=== PATIENT | male | born 1970 | race Caucasian/White ===

== ENCOUNTER → 2023-06-18 15:22 | Outpatient (REF) | payer OTHER, SELFPAY | LOC: HWRAD 15:22 | PROVIDERS: ATTENDING PHYSICIAN Physician Assistant; FAMILY PHYSICIAN Family Medicine | DX: E05.90 Thyrotoxicosis, unspecified without thyrotoxic crisis or storm (principal); E04.1 Nontoxic single thyroid nodule | CPT/HCPCS: 76536 ==

== ENCOUNTER → 2024-10-11 12:58 | Outpatient (REF) | payer OTHER, SELFPAY | LOC: HWRCS 12:58 | PROVIDERS: ATTENDING PHYSICIAN Family Medicine | DX: R01.1 Cardiac murmur, unspecified (principal) | CPT/HCPCS: 93306 ==

== ENCOUNTER 2024-11-23 09:35 | Day surgery (SDC) | payer OTHER, SELFPAY ==
[2024-11-23] VITALS (9 sets, daily range): BP systolic 93–126; BP diastolic 63–87
--- NOTE | 2024-11-23 12:33 | ITS.CL.CATH ---
Ccu Nurse - Catheterization
Cardiac Catheterization
Procedure Report:
CARDIAC CATHETERIZATION REPORT
Date of Procedure: 11/23/2024
Referring: Deshawn Veras M.D.
INDICATION: Severe mitral valve regurgitation, preop for mitral valve repair.
PROCEDURE:
1. Left heart catheterization.
2. Coronary angiography.
A total of 23 minutes of procedural/moderate sedation was utilized. An independent medical front desk specialist was present to assist with and help manage the patient's level of consciousness and physiologic status.
ACCESS:
1. 6 [place] right right artery using a modified Seldinger technique delete the.
CATHETERS:
1. 5 [place] JR4.
2. 5 [place] JL 3.5.
HEMODYNAMIC DATA
Weight (kg): 99.8
AO (s/d/x, mmHg): 103/75/88
LV (s/x mmHg): 106/14
LEFT VENTRICULOGRAPHY: Not performed.
CORONARY ANGIOGRAPHY
Dominance: Right.
Left Main: Normal size, trifurcating vessel. There is no coronary artery disease
LAD: Normal size vessel giving rise to 2 significant diagonals and fairly rapid succession. There is no coronary artery disease.
Ramus: Medium size vessel supplying a significant portion of the anterolateral wall. There is no coronary artery disease.
Circumflex: Medium to large size vessel giving rise to 1 notable obtuse marginal which supplies the inferolateral wall. There is no coronary artery disease. The terminal end of the obtuse marginal is severely tortuous.
RCA: Large size, dominant vessel with a large posterolateral arcade supplying the majority of the inferolateral wall. There is no coronary artery disease.
INTERVENTION(S)
None
Closure Device: Vascular band.
Radiation (mGy): 373.08
DAP (cm2.Gy): 28.7866
Fluoroscopy time (minutes): 1.6
CONCLUSIONS
1. Right dominant circulation with no coronary artery disease.
2. Mildly elevated filling pressures (LVEDP = 14 mmHg at 99.8 kg).
3. Severe degenerative mitral valve regurgitation on echocardiography.
RECOMMENDATIONS:
1. Expectant management after cardiac catheterization via right radial approach.
2. Limited weight bearing on the right wrist for one week.
3. Ongoing plan for surgical mitral valve repair.
Copy to: Darren Cramer M.D., Deshawn Veras M.D., Charles Jones M.D., Barbi Newman M.D.
Saeed Alonzo DO, FACC, FACP
[2024-11-23] MEDS: TYLENOL 650 MG PO (14:01)
[2024-11-23] MEDS: NSS 1000 IV (14:04)
== END 2024-11-23 17:15 | disposition home or self-care (01) ==
LOC: CATH 09:35
PROVIDERS: ATTENDING PHYSICIAN Internal Medicine Cardiovascular Disease; FAMILY PHYSICIAN Family Medicine; OTHER PHYSICIAN Student in an Organized Health Care Education/Training Program
DX: I34.0 Nonrheumatic mitral (valve) insufficiency (principal); E05.00 Thyrotoxicosis with diffuse goiter without thyrotoxic crisis or storm
CPT/HCPCS: 93312; 93320; 93325; 99152; 99153; 93458; C1894; Q9967

== ENCOUNTER → 2024-12-05 16:58 | Outpatient (REF) | payer OTHER, SELFPAY | LOC: RAD 16:58 | PROVIDERS: ATTENDING PHYSICIAN Thoracic Surgery (Cardiothoracic Vascular Surgery); FAMILY PHYSICIAN Family Medicine | DX: I34.0 Nonrheumatic mitral (valve) insufficiency (principal); Z01.810 Encounter for preprocedural cardiovascular examination | CPT/HCPCS: 71275; 74174; Q9967 ==

== ENCOUNTER 2024-12-30 05:56 | Inpatient (IN) | payer OTHER, SELFPAY ==
[2024-12-06 12:19] VITALS: BMI 32.0
[2024-12-06 12:59] LABS: Hematocrit 38.6 % (39.0-52.0); Hemoglobin 13.3 g/dL (13.0-18.0); Mean Corp Hgb Conc. 34.5 g/dL (33.0-37.0); Mean Corpuscular Volume 83.5 fL (80.0-94.0); Nucleated Red Blood Cells % 0 % (-); Platelet Count 192 10^3/uL (130-400); Red Cell Dist. Width 12.0 % (11.5-14.5)
[2024-12-06 13:31] LABS: APTT 29.5 Sec (23.4-35.0); INR 0.97; PT 13.2 Sec (11.4-14.6)
[2024-12-06 13:57] LABS: ALT (SGPT) 16 U/L (0-50); AST (SGOT) 21 U/L (17-59); Albumin 5.0 g/dl (3.5-5.0); Alkaline Phosphatase 67 U/L (38-126); Blood Urea Nitrogen 14 mg/dl (9-20); Calcium 10.5 mg/dl (8.4-10.2); Carbon Dioxide 28 mmol/L (22-30); Chloride 104 mmol/L (98-107); Estimated Creatinine Clearance > 125 ml/min; Glucose 89 mg/dl (70-99); Potassium 4.2 mmol/L (3.5-5.1); Sodium 137 mmol/L (135-145); Total Protein 7.4 g/dl (6.3-8.2); eGFR > 60.00
[2024-12-06 14:43] LABS: Glycohemoglobin (HgbA1c) 5.1 % (4.0-5.6)
[2024-12-06 15:09] LABS: Urine Character Clear (Clear)
--- NOTE | 2024-12-06 15:15 | CM ---
spoke to pt in PAT's, we discussed pre op MVR ([place]) teaching including lifting and driving restrictions. he is prev indep, lives with is cooper 2 story homewith 1 step to enter. he has the cardiac surgery book, soap and instructiosn. he is
agreeable to a f/u visit from the ct transitioanl care nurse after dc. plan is for MVR 12/30. cm role explained and all questions answered
[2024-12-30] VITALS (16 sets, daily range): BP systolic 95–136; BP diastolic 63–87; PULSE 2–81
--- NOTE | 2024-12-30 06:00 | PTCARENOTE ---
Patient admitted to CVICU. Patient confirmed 2 CHG showers. Patient admission questions asked. Patient clipped and wiped w/ CHG wipes. Med rec. performed. Medications administered prior to CVOR. Questions answered. Awaiting CVOR.
[2024-12-30] MEDS: LOPRESSOR 25 MG PO (06:14)
[2024-12-30] MEDS: PROTONIX 40 MG PO (06:14)
[2024-12-30] MEDS: MAGNESIUM OXIDE 400 MG PO (06:14)
[2024-12-30] MEDS: BACTROBAN 2% OINTMENT 1 APPLIC NASAL ×2 (06:14→20:50)
--- NOTE | 2024-12-30 06:29 | W.CVOR.SURPR ---
CVOR Surgeon Immed Pre Op
-
I have examined this patient prior to performance of the scheduled procedure.
The patient's condition is unchanged from the time of the dictated/written History and
Physical and the patient is able to undergo the scheduled procedure.
MV repair +/- LASHAE E
[2024-12-30 08:03] LABS: Urine Character Clear (Clear)
--- NOTE | 2024-12-30 08:04 | W.PN.CD ---
Today's Communication / Plan
-
Surgery today.
Anticipate routine post op recovery.
Wean vent to extubate.
Titrate pressors/inotropes for MAP > 65 mmHg, CI > 1.8 L/min/m2.
Impression / Plan
-
Impression/Plan: 54 y/o male with hyperthyroidism and severe MR admitted for elective mitral valve repair.
#Severe MR
-Chronic, progressive.
-Currently in surgery.
-Anticipate routine post operative recovery.
-Wean vent to extubate.
-Titrate pressors/inotropes to MAP > 65 mmHg, CI > 1.8 L/min/m2.
#Hyperthyroidism/Graves disease
-Chronic, stable.
-Maintain methimazole.
Subjective/Interval History:
Patient in the OR for surgery today.
DATA:
DANYA, 11/23/2024:
SUMMARY
1. Normal biventricular size and function without regional wall motion abnormalities.
2. LVEF is 55-60% by visual estimation.
3. Severe mitral regurgitation secondary to flail P2 scallop likely secondary to torn chordae.
4. Compared to TTE from October 11, 2024, no significant change.
Cardiac Catheterization, 11/23/2024:
CONCLUSIONS
1. Right dominant circulation with no coronary artery disease.
2. Mildly elevated filling pressures (LVEDP = 14 mmHg at 99.8 kg).
3. Severe degenerative mitral valve regurgitation on echocardiography.
Physical Exam
Vital Signs/Labs
Vital Signs
Temp Pulse Resp BP Pulse Ox
36.8 C 78 20 136/87 99
12/30/24 05:59 12/30/24 05:59 12/30/24 05:59 12/30/24 06:14 12/30/24 05:59
12/28/24 12/29/24 12/30/24
11:59 11:59 11:59
Actual Weight 97.6 kg
12/06/24 12:27
12/06/24 12:27
PT 13.2 Sec (11.4-14.6) 12/06/24 12:27
INR 0.97 12/06/24 12:27
APTT 29.5 Sec (23.4-35.0) 12/06/24 12:27
Physical Exam
Constitutional: No acute distress and Comfortable
EENT: Other (ET tube in place.)
Neuro/Psych: Other (Intubated/sedated.)
Data Reviewed
-
Date of Service: December 30, 2024
Medical Decision Making: Reviewed Test Results and Test Interpretation
EKG: Tracing Personally Visualized and interpreted and Report Reviewed by me
Echo: Tracing Personally Visualized and interpreted and Report Reviewed by me
X-Ray/CT/US/MRI/NUC/PET: Image Personally Visualized and interpreted and Report Reviewed by me
Medical Tests (PFT, Pathology etc): Image Personally Visualized and interpreted and Report Reviewed by me
Labs: Labs Reviewed by me
Old Records: Reviewed
[2024-12-30 08:11] LABS: Urine Red Blood Cell 0-2 /HPF (0-2)
[2024-12-30 08:16] LABS: ACT+ - POC 126 Seconds (82-134)
[2024-12-30 09:09] LABS: ACT+ - POC 589 Seconds (82-134)
[2024-12-30 09:50] LABS: ACT+ - POC 549 Seconds (82-134)
[2024-12-30 09:55] LABS: B.E. - POC 2.4 mmol/L; Glucose - POC 102 mg/dl (70-99); HCO3 - POC 29 mmol/L (21-28); Hematocrit - POC 37 % PCV (42-52); Hemodilution- POC No; Hemoglobin Calculated - POC 12.4; Ionized Calcium - POC 1.30 mmol/L (1.15-1.33); Lactate - POC < 0.30 mmol/L (0.36-0.75); O2 Saturation %Calculated-POC 99.9 % (94-98); PCO2 - POC 51 mmHg (35-48); PO2 - POC 280 mmHg (83-108); Potassium - POC 3.7 mmol/L (3.5-5.1); Sodium - POC 139 mmol/L (136-145); Specimen Type - POC Arterial; pH - POC 7.36 (7.35-7.45)
[2024-12-30 10:30] LABS: ACT+ - POC 521 Seconds (82-134)
[2024-12-30 10:50] LABS: B.E. - POC 0.6 mmol/L; Glucose - POC 176 mg/dl (70-99); HCO3 - POC 26 mmol/L (21-28); Hematocrit - POC 36 % PCV (42-52); Hemodilution- POC Yes; Hemoglobin Calculated - POC 12.2; Ionized Calcium - POC 1.12 mmol/L (1.15-1.33); Lactate - POC 1.22 mmol/L (0.36-0.75); O2 Saturation %Calculated-POC 99.8 % (94-98); PCO2 - POC 44 mmHg (35-48); PO2 - POC 222 mmHg (83-108); Potassium - POC 5.2 mmol/L (3.5-5.1); Sodium - POC 137 mmol/L (136-145); Specimen Type - POC Arterial; pH - POC 7.38 (7.35-7.45)
--- NOTE | 2024-12-30 10:52 | CM ---
pt in OR today, cm following
[2024-12-30 10:59] LABS: ACT+ - POC 120 Seconds (82-134)
--- NOTE | 2024-12-30 11:07 | W.PN.CT.SURG ---
CT Surgery Operative Note
-
CARDIAC SURGERY OPERATIVE REPORT
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
Postoperative Diagnosis: Same
Procedure(s) Performed:
1. Right mini thoracotomy with right femoral artery and vein cannulation under DANYA guidance
2. Radical mitral valve repair (triangular section of P2, free edge remodeling with closure of the cleft and P1 P2 and placement of 2 Bland-Arvin cords and a 34 mm band angioplasty)
3. Placement temporary ventricular pacing wires
4. Trans esophageal echocardiography
5. Left atrial appendage exclusion [40 mm device]
Date of Surgery: 12/30 08/05
Comorbidities:
1. 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
2. Severe mitral valve insufficiency, symptomatic
3. Asthma
4. Allergies and nasal polyp
5. Obese
Attending Surgeon: Darren Cramer MD, MS
Assistants: China Maldonado PA-C (present and necessary for retraction, suctioning, exposure, suture management, wound closure, etc. under my direction)
Anesthesiology: Melvin Moy MD and Preethi Otto CRNA
Scrub and Circulating RNs: Tish Partida, HERBERTH, Clifton Khan RN
Sheriffs: Benjamin Comer CCP
Anesthesia: GETA
EBL: per perfusion records
Products: None
CPB Time: 86 minutes
Aortic Cross Clamp Time: 69 minutes
Indication(s) for Procedures: This is a 54-year-old male with mitral valve insufficiency. He had some mild dilation of his LV and a very mildly reduced left ventricular ejection fraction. Between our office consultation and today, he actually
developed more symptoms and was feeling short of breath. He was offered surgical repair of his mitral valve as well as possible ligation of his left atrial appendage given that he has dilation of his left atrium and it is valve related
insufficiency.
Mitral Valve Description: Thickening of both the anterior posterior leaflets with a flail segment of the P2 scallop, with prolapse. There are multiple torn cords. Annulus was dilated in both the AP and lateral medial dimensions, large class
between P1 and P2.
Implants:
1. 34 mm band anoplasty, Vini physio flex, SN [id number]
2. 40 mm left atrial appendage clip, serial number [id number]
3. 2 sets of CV 4 Bland-Arvin cords, multiple 5-0 Prolene's
Specimen:
1. P2 scallop with torn cords
Findings: His left ventricular ejection fraction preop was 50% with no significant regional wall motion abnormalities. Following surgery his EF actually looks significantly better without inotropic support. There were no new regional wall motion
abnormalities his mitral valve had multiple torn cords at the P2 scallop which was also significantly prolapsed and elongated. The annulus was also dilated. I did a triangular resection of this P2 scallop in order to reduce some of the height.
This was reapproximated with multiple 5-0 Prolene's in order to promote a downward ventricular turn. I then placed a free edge remodeling stitch between P1 and P2 and obliterate the cleft. The left atrial appendage was also visualized
intraoperatively and found to be totally occlusive. I then placed 2 sets of cords from the anterior lateral and the posterior medial papillary muscle heads to the P2 free margin as I felt the coaptation margin was too anterior on inking of the
coaptation line. The annulus was secured and remodeled using a 34 mm band annuloplasty with a total of 10 nonpledgeted 2-0 Ethibond sutures with core knots. After coming off of cardiopulmonary bypass, there is no residual mitral valve
insufficiency, there is good excursion of the anterior posterior leaflets, there is no systolic anterior motion of the leaflets. The mean gradient across the valve was 2 mmHg. The left atrial appendage was clipped across the transverse sinus flush
the base. There is no residual flow in the left atrial appendage on DANYA. No blood products were required, cardiac index is well over 2 without inotropic support, and he resumed his sleetmute sinus rhythm.
Description of Procedure: The patient was brought to the operating room and placed supine in the table with their right side bumped up and right arm down. Arterial and central access was performed by anesthesiology. The patient was prepped from chin
to toes in the typical sterile fashion. Trans esophageal evaluation of cardiac function and all valvular structures was conducted. Before commencing, a time out was performed by all members of the team. All were in agreement with the procedure and
laterality and I proceeded. A small right groin incision was made to expose the common femoral artery and vein. A 5-6 cm right lateral muscle sparing thoracotomy sweeping the pec major muscle cephalad at the serratus anterior was performed over the
4th intercostal space verified by visualization of the hilum. A total of 50,000 units of heparin was given. The common femoral artery and vein were cannulated under transesophageal guidance using open Seldinger technique. The arterial line was
verified to have an appropriate bounce and pressure correlating with testing. Once the ACT was above 400, retrograde autologous priming was done and we commenced cardiopulmonary bypass. Target core temperature was 34�C.
Carbon dioxide was used to flood the field. The course of the phrenic nerve was identified to prevent injury. The pericardium was opened and two stay sutures were placed to facilitate a ``pericardial table.�� The oblique sinus was developed followed
by the inter atrial groove. An antegrade root vent was inserted and secured with a pursestring suture. The pump flow and mean arterial pressure were lowered and an aortic cross clamp was applied to the ascending aorta. A total of 1.2L initial dose
of Antegrade cardioplegia was delivered. We had rapid electro myocardial quiescence at 320 cc of cardioplegia. The ventricle was monitored for distension by echocardiogram during this time. Once the heart was fully arrested I turned the root vent
on and the aorta then flattened and facilitate exposure to the transverse sinus. Left atrial Penders was visualized here and then clipped flush the base using a 40 mm device. The left atrium was incised and enlarged. A left atrial lift retractor
was placed. The mitral valve was inspected. The mitral valve was repaired as described above. The left atriotomy was closed with 3-0 prolene in a running fashion leaving a ventricular vent in place to de-air. After filling the heart, the vent was
removed and the prolene was secured with a corknot. Unipolar ventricular pacing wire was placed on the base of the right ventricle. The patient was placed into Trendelenburg position and pump flows were lowered. The clamp was slowly removed with
the root vent turned on. De-airing maneuvers were performed. We started to rewarm with a target of 36.5�C.
As the heart recovered, the mitral valve and ventricular function were assessed under transesophageal echocardiogram. The LV vent and root vents were removed. Once weaning parameters were satisfactory, cardiopulmonary bypass flow was lowered until
we were off cardiopulmonary bypass the mitral valve was inspected again. All surgical sites were inspected for hemostasis and appeared appropriate. The root vent and the pericardium was approximated with 2-0 ethibond sutures secured with corknots.
The lines were clamped and the arterial was relocated to the venous cannula to give back volume. A test dose of protamine was delivered and patient was monitored for any adverse reactions followed by complete protamine dosing. The femoral vessels
were decannulated and repaired as indicated. One 19F Nomi drain remained in the pleural space and threaded into the pericardium. There was an excellent palpable distal pulse to the GARAGE WORKER cannulation site. Local analgesia was injected to the
thoracotomy. The incision was closed in layers in a running fashion.
All instrument, sponge, and needle counts were confirmed to be correct x 2 at the end of the operation. The patient was transferred to the cardiac intensive care unit in critical but stable condition.
I, Dr. Darren Cramer, was present, scrubbed for, and performed all critical elements of this procedure.
Darren Cramer MD, MS
Cardiothoracic Surgeon
[facility]
This dictation was created using the PAK dictation system. Please excuse any grammatical, typographical, or 'sound alike' errors
--- NOTE | 2024-12-30 11:45 | CON.INTV ---
Consultation
Consultation Request
Date/Time Consultation Requested: 12/30/2024
Date/Time Consultation Performed: 12/30/2024
Medical History
-
Chief Complaint: Mitral valve prolapse
History of Present Illness:
Patient is a 54-year-old gentleman with known history of mitral regurgitation. Patient followed up with CT surgery as outpatient and was recommended to have mitral valve repair. He was admitted to the hospital for above procedure and postop was
admitted to CVICU. Cosmetician consultation was requested for further input.
Past medical history. Asthma, allergic rhinitis, nasal polyps. Graves' disease
Past surgical history. Appendectomy, sinus surgery, hernia repair, wisdom tooth removal.
Family history. Mother had eczema. No other major medical problems reported.
Social history. Will get additional information once ore awake and alert
Allergies / Home Medications
Allergies
Allergy/AdvReac Type Severity Reaction Status Date / Time
amoxicillin (From Augmentin) Allergy GI Upset Verified 12/05/24 14:12
clavulanic acid (From Allergy GI Upset Verified 12/05/24 14:12
Augmentin)
Home Medications
�Medication �Instructions �Recorded �Confirmed �Last Taken �Type
Zyrtec 1 tab PO DAILY Allergies 11/23/24 12/30/24 12/27/24 08:00 History
aspirin 81 mg tablet 81 mg PO DAILY Blood Clot 11/23/24 12/30/24 12/19/24 08:00 History
Prevention/Tx
methimazole 15 mg tablet 15 mg PO DAILY Thyroid 11/23/24 12/30/24 12/29/24 11:30 History
pseudoephedrine-ibuprofen 30 1 cap PO PRN PRN cold 11/23/24 12/30/24 12/28/24 12:00 History
mg-200 mg capsule (Advil Cold and
Sinus)
albuterol sulfate 90 mcg/actuation 2 puff inhalation QID PRN sob 12/05/24 12/30/24 12/30/24 04:30 History
aerosol inhaler
budesonide 1 mg/2 mL suspension 1 mg inhalation DAILY PRN 12/05/24 12/30/24 12/16/24 12:00 History
for nebulization congestion
fluticasone propionate 50 1 spray intranasal DAILY PRN 12/05/24 12/30/24 12/28/24 08:00 History
mcg/actuation nasal congestion
spray,suspension
Review of Systems
-
Unable to Obtain full review of systems at this time due to: Other (Still sedated)
Vitals / Labs / Diagnostic Testing
Vital Signs
Temp Pulse Resp BP Pulse Ox
98.3 F 78 20 136/87 99
12/30/24 05:59 12/30/24 05:59 12/30/24 05:59 12/30/24 06:14 12/30/24 05:59
Diagnostic Testing:
Physical Exam
-
HEENT: Normocephalic
Cardiovascular: S1/S2
Respiratory: Clear
GI: Soft and Non Distended
Neurology: Other (Still sedated. )
Skin: Warm
General: Comfortable
Assessment
-
Patient is a 54-year-old male with history of severe mitral regurgitation s/p radical mitral valve repair with left atrial appendage exclusion POD # 0
Titrated off pressors per protocol, currently MAP of 80, CVP of 11, not needing any pressor support. Heart rate 82/min
ECHO reviewed with normal EF
PA catheter readings reviewed, , mean 23
Management of chest tubes per primary service
Patient currently extubated, still quite drowsy, Precedex infusing at 0.3, respiratory rate around 13-15, mild respiratory acidosis noted with increased pCO2
- Discontinue Precedex infusion
- BiPAP being initiated, 10 x 6, 4 L supplemental oxygen, tidal volume around 500-600 noted. Reevaluation in few minutes continues to ventilate well with 500-700 tidal volume and respiratory rate 13-15. Still drowsy.
- Check ABG in 45 minutes after being on BiPAP and continue to stay off all sedation including Precedex
CXR suggestive of bilateral lower lobe subsegmental atelectasis, BiPAP initiated. Once more awake and alert, can start incentive spirometry
Maintain supplement oxygen as needed
Known history of asthma, not currently wheezy. In view of hypercapnia, start DuoNeb scheduled 4 times daily along with budesonide nebulized twice a day
Can add nebulizers if needed
Aspiration precautions
Encouraged incentive spirometry, OOB/ambulation/early mobility
Advance diet as tolerated following extubation
GI prophylaxis: Protonix
Monitor critical I/O's
Escobedo/chest tube output
Hb/platelets postoperatively, mild drift
Trend CBC for now
Can transfuse if indicated for Hb <7, plt <50 in surgical patients
DVT prophylaxis including SCDs
Insulin protocol initiated and ongoing
Transition to SQ/off as indicated per team
Other medical diagnoses:
- Pulmonary nodule, RLL (11/2024). Newly detected on recent CT scan, 1 nodule is 3 mm and another area appears to be more of an atelectasis. Outpatient follow-up with pulmonary clinic. Will get additional information once patient is more alert
and awake
- History of asthma, mild intermittent. As needed budesonide, as needed albuterol
- Allergic rhinitis. As needed Flonase and Zyrtec
- Graves' disease. Follows up with endocrinology service. Currently on methimazole
Critical Care time [68] mins -- The patient is admitted for acute critical illness for the treatment of vital organ failure and/or prevention of further life-threatening conditions. Total care includes time spent in review of history, physical exam,
medications, hemodynamic/ventilator parameters, laboratory data, imaging and discussion with house staff, pharmacy, respiratory therapy, copy lathe operator, and nursing
Data:
[facility] 11/2024: 1. Right dominant circulation with no coronary artery disease.
2. Mildly elevated filling pressures (LVEDP = 14 mmHg at 99.8 kg).
3. Severe degenerative mitral valve regurgitation on echocardiography.
DANYA 11/2024: 1. Normal biventricular size and function without regional wall motion abnormalities.
2. LVEF is 55-60% by visual estimation.
3. Severe mitral regurgitation secondary to flail P2 scallop likely secondary to torn chordae.
4. Compared to TTE from October 11, 2024, no significant change.
CT C/A/P 11/2024: 1. No acute vascular abnormality is identified. No flow-limiting stenoses. No aneurysmal dilation of the aorta.
2. Mild cardiomegaly.
3. Very small nodules/focal opacities right lower lobe as above. Given the size, these are likely to have a benign etiology. If there are significant risk factors, consider follow-up scan in 12 months as below.
4. Additional chronic and incidental findings as detailed above.
ECHO 10/2024: Left ventricle is mildly dilated (LVIDD 6.0 cm, LVIDS 4.2 cm) with low-normal
systolic function. LVEF 50-55%.
Severely dilated left atrium.
Prolapse and partial flail of the posterior mitral valve leaflet resulting in
severe eccentric mitral regurgitation.
Mild tricuspid regurgitation. PASP 30-35 mmHg.
[2024-12-30 11:57] LABS: B.E. - POC -3.1 mmol/L; Glucose - POC 145 mg/dl (70-99); HCO3 - POC 24 mmol/L (21-28); Hematocrit - POC 30 % PCV (42-52); Hemodilution- POC Yes; Hemoglobin Calculated - POC 10.3; Ionized Calcium - POC 1.32 mmol/L (1.15-1.33); Lactate - POC 1.97 mmol/L (0.36-0.75); O2 Saturation %Calculated-POC 98.0 % (94-98); PCO2 - POC 51 mmHg (35-48); PO2 - POC 119 mmHg (83-108); Potassium - POC 4.3 mmol/L (3.5-5.1); Sodium - POC 137 mmol/L (136-145); Specimen Type - POC Arterial; pH - POC 7.28 (7.35-7.45)
[2024-12-30 12:00] LABS: Glucose - Point of Care 155 mg/dl (70-99)
[2024-12-30 12:04] LABS: B.E. -2.7 mmol/L; HCO3 24.5 mmol/L (21-28); O2 Saturation % 98.3 % (94-98); PCO2 51 mmHg (35-48); PO2 94 mmHg (83-108); Potassium 4.0 mMOL/L (3.5-5.1); Sodium 136 mMOL/L (136-145)
[2024-12-30 12:07] LABS: Hematocrit 36.9 % (39.0-52.0); Hemoglobin 12.8 g/dL (13.0-18.0); Platelet Count 145 10^3/uL (130-400)
[2024-12-30] MEDS: DILAUDID 0.5 MG IV ×4 (12:08→23:23)
[2024-12-30 12:13] LABS: INR 1.22; PT 15.7 Sec (11.4-14.6)
[2024-12-30 12:14] LABS: APTT 26.1 Sec (23.4-35.0)
[2024-12-30 12:17] LABS: Blood Urea Nitrogen 15 mg/dl (9-20); Estimated Creatinine Clearance 114 ml/min; Glucose 146 mg/dl (70-99); Magnesium 2.8 mg/dl (1.6-2.3)
--- NOTE | 2024-12-30 12:22 | PTCARENOTE ---
received pt from the CVOR into 2260, sinus rhythm on tele w HR 80's, + peripheral pulses, no edema noted. Epicardial V wire maintained. Lungs diminished, pox 95% on CPAP 01/16. hypoactive BS, NPO maintained post op. Escobedo draining yellow. CTx1 w red
drainage. Right lateral incision and puncture sites w surgical glue intact. Post op EKG, CXR and labs obtained as ordered.
DRIPS: Insulin titrated per glycemic protocol.
[2024-12-30] MEDS: ANCEF 10 IV ×2 (12:30)
[2024-12-30] MEDS: NEURONTIN PO (12:30)
[2024-12-30] MEDS: NSS 500 IV (12:31)
[2024-12-30 12:52] LABS: Glucose - Point of Care 155 mg/dl (70-99)
--- NOTE | 2024-12-30 13:12 | W.PN.UPDATE ---
Update Note
Progress Note Update
54-year-old male was electively admitted on 12/30/2024 for mitral valve repair due to myxomatous mitral degeneration with flail segment of P2 and severe MR and shortness of breath with exertion.
IV fluids: 1150
U.O.:� 500
Blood:� none
Wires:� V-wires
Drips: Levo @ 2, insulin
�
NEURO: drowsy, [place] +5/5 B/L, pupils +2mm B/L
RESP: Lungs clear B/L. R pleural (50cc on arrival) chest tubes to -20cm suction. Sanguineous drainage
CV: RRR +S1, S2, no S3, no�rub, no murmur. Dermabond to Right mini thoracotomy. RIJ w/[place] locked @ 44cm. PA 34/14; CVP 12
ABD: round, soft, no BS
EXT: no edema, +2/4 DP pulses B/L, no femoral bruit, left radial A-line intact
: Escobedo with clear yellow urine
�
A/P: POD #0 s/p radical mitral valve repair (triangular section of P2, free edge remodeling with closure of the cleft and P1 P2 and placement of 2 [place]-Arvin cords and a #34 mm band angioplasty), left atrial appendage exclusion [40 mm device]
- wean and extubate
- will need pre-discharge TTE
- will need instruction regarding antibiotic prophylaxis for dental and invasive procedures
�
# acute surgical blood loss anemia-expected
- Hb 12.8>trend CBC
�
# Asthma
- Flonase, Zyrtec
�
# Hyperthyroidism
- resume�Methimazole
[2024-12-30 13:20] LABS: B.E. 0.3 mmol/L; HCO3 26.5 mmol/L (21-28); O2 Saturation % 99.3 % (94-98); PCO2 48 mmHg (35-48); PO2 134 mmHg (83-108)
[2024-12-30] MEDS: LR 250 ML IV ×2 (13:30→14:10)
[2024-12-30] MEDS: TYLENOL PO ×2 (13:31→19:50)
[2024-12-30 13:39] LABS: B.E. - POC 1.1 mmol/L; Glucose - POC 138 mg/dl (70-99); HCO3 - POC 27 mmol/L (21-28); Hematocrit - POC 36 % PCV (42-52); Hemodilution- POC Yes; Hemoglobin Calculated - POC 12.4; Ionized Calcium - POC 1.09 mmol/L (1.15-1.33); Lactate - POC < 0.30 mmol/L (0.36-0.75); O2 Saturation %Calculated-POC 99.9 % (94-98); PCO2 - POC 50 mmHg (35-48); PO2 - POC 319 mmHg (83-108); Potassium - POC 5.2 mmol/L (3.5-5.1); Sodium - POC 138 mmol/L (136-145); Specimen Type - POC Arterial; pH - POC 7.35 (7.35-7.45)
--- NOTE | 2024-12-30 13:40 | PTCARENOTE ---
bipap removed by RT, pt placed on 6L NC, POX 96
[2024-12-30 14:02] LABS: Glucose - Point of Care 120 mg/dl (70-99)
[2024-12-30] MEDS: ROXICODONE 5 MG PO ×3 (14:02→22:20)
[2024-12-30] MEDS: LOW STRENGTH ASPIRIN 81 MG PO (14:03)
[2024-12-30] MEDS: NEURONTIN 100 MG PO ×2 (14:28→21:01)
[2024-12-30] MEDS: PACERONE 200 MG PO ×2 (14:28→21:01)
[2024-12-30 14:59] LABS: Glucose - Point of Care 100 mg/dl (70-99)
--- NOTE | 2024-12-30 15:06 | PTCARENOTE ---
VSS, pt medicated for pain, at bedside and updated on plan of care.
[2024-12-30] MEDS: DUONEB 3 ML INH ×2 (15:27→19:53)
[2024-12-30] MEDS: TORADOL 15 MG IV (15:42)
[2024-12-30 16:18] LABS: Glucose - Point of Care 127 mg/dl (70-99)
[2024-12-30 16:18] LABS: Hematocrit 35.9 % (39.0-52.0); Hemoglobin 13.0 g/dL (13.0-18.0); Platelet Count 164 10^3/uL (130-400)
--- NOTE | 2024-12-30 16:30 | PTCARENOTE ---
CHG bath completed, pt turned from side to side without large output from CTs.
[2024-12-30] MEDS: OFIRMEV 100 IV (17:04)
[2024-12-30] MEDS: ANCEF 5 IV (17:23)
--- NOTE | 2024-12-30 17:53 | PTCARENOTE ---
[place] removed without incident.
[2024-12-30 18:12] LABS: Glucose - Point of Care 119 mg/dl (70-99)
[2024-12-30] MEDS: ZOFRAN 4 MG IV (18:22)
--- NOTE | 2024-12-30 18:26 | PTCARENOTE ---
pt medicated for pain and nausea with good relief.
[2024-12-30] MEDS: PULMICORT 0.5 MG INH (19:53)
--- NOTE | 2024-12-30 20:00 | PTCARENOTE ---
Assumed care of the patient at 1900. Patient in bed, drowsy, AOx3. SR on CM, rates 80's-90's, no edema, pulses palpable, heart tones audible; V wire present connected to pacer box powered off. Lungs dim at the bases, on 2LNC, shallow respirations
due to pain, IS encouraged. Abdomen SNT, hypoactive, tolerating sips and chips. Escobedo catheter in place draining clear yellow urine. Surgical sites stable and intact. RIJ cordis, L radial art line, PIVx1; all applicable lines leveled, zeroed, and
flushed. On Levo and insulin. Levo turned off for sufficient MAP. See work list for nursing intervention details.
[2024-12-30 20:02] LABS: Glucose - Point of Care 104 mg/dl (70-99)
[2024-12-30] MEDS: SENOKOT 8.6 MG PO (20:54)
[2024-12-30 22:04] LABS: Glucose - Point of Care 128 mg/dl (70-99)
[2024-12-30] MEDS: TYLENOL 650 MG PO (23:24)
--- NOTE | 2024-12-30 23:35 | PTCARENOTE ---
Patient c/o increasing pain. PRN oxycodone given, did not do much to alleviate his discomfort, Dilaudid subsequently administered. Pt c/o headache, given Tylenol. Repositioned as needed for comfort. Sleeping intermittently between care, arouse to
voice. Assessment of needs ongoing, call chun within reach.
[2024-12-30 23:59] LABS: Glucose - Point of Care 109 mg/dl (70-99)
[2024-12-31] VITALS (18 sets, daily range): BP systolic 95–118; BP diastolic 68–84; PULSE 92; O2SAT 94–96; BMI 30.7
[2024-12-31 02:02] LABS: Glucose - Point of Care 119 mg/dl (70-99)
[2024-12-31] MEDS: ANCEF 5 IV ×2 (02:05→11:06)
[2024-12-31] MEDS: LR 250 ML IV ×2 (02:06→02:56)
[2024-12-31] MEDS: ROXICODONE 5 MG PO ×4 (02:55→21:45)
--- NOTE | 2024-12-31 03:12 | W.PN.CT ---
Today's Communication / Plan
-
-pod #1
-no significant issues overnight
-low UO- improved with 500 LR
-drips: insulin
-CT output: med 105/190 in 12/24 hrs
-swan dcd 12/30
-d/c a-line
-d/c insulin
-d/c Escobedo
-current meds (ASA, Lopressor, Amio, Protonix, Tapazole)
-encourage IS, OOB
Assessment / Plan
-
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
2 [place]-Arvin cords and a 34 mm band angioplasty); LAAE [40 mm device] on 12/30/24, pod #1
- Intraop DANYA: LVEF preop was 50% with no significant regional wma. Following surgery, his EF actually looks significantly better without inotropic support. There were no new regional wall motion abnormalities. There was no residual flow in the
left atrial appendage on DANYA.
- Severe mitral valve insufficiency, symptomatic
- Asthma
- Allergies and nasal polyp
- Class 1 obesity, BMI 30
- Hx Covid
- Migraines
- Hx sinus surgery
- Appendectomy
- Hernia repair
- Acute postop blood loss anemia - stble, no transfusion
- Acute postop atelectasis
- Acute postop hypovolemia with subsequent hypervolemia
Discussed patient care with: Nursing and Care Team
Subjective
-
Date of Service: December 31, 2024
Objective Data
-
PT 15.7 Sec (11.4-14.6) H 12/30/24 11:55
INR 1.22 12/30/24 11:55
APTT 26.1 Sec (23.4-35.0) 12/30/24 11:55
Vital Signs
Vital Signs
Temp Pulse Resp BP Pulse Ox
99.5 F 88 23 112/78 96
12/31/24 03:00 12/31/24 03:00 12/31/24 03:00 12/31/24 03:00 12/31/24 03:00
CT Intake/Output/Weight
12/30/24 12/30/24 12/31/24
06:59 18:59 06:59
Intake Total 853.3 / 1097.3 244.0 / 1097.3
Output Total 425 / 760 335 / 760
Balance 428.3 / 337.3 -91.0 / 337.3
SaO2: 96
Physical Exam
-
General: Awake and AOx3
Cardiovascular: Regular rate & rhythm, No Murmurs and No Rub
Respiratory: Decreased Breath Sounds
Sternum: Stable
Incision: Clean, Dry and Intact
Extremities: No Edema (2+ DPs b/l)
Abdomen: soft, nontender, nondistended, + decreased bowel sounds
Data Reviewed
-
Lab Results: Results Reviewed
Medications: Active Meds Reviewed
Chest X-Ray: Report Reviewed and Image Reviewed
ECG: Report Reviewed and Image Reviewed
[2024-12-31] MEDS: DILAUDID 0.5 MG IV (03:13)
[2024-12-31] MEDS: ZOFRAN 4 MG IV (03:19)
[2024-12-31 04:08] LABS: Glucose - Point of Care 106 mg/dl (70-99)
[2024-12-31 04:37] LABS: Hematocrit 32.9 % (39.0-52.0); Hemoglobin 11.6 g/dL (13.0-18.0); Mean Corp Hgb Conc. 35.3 g/dL (33.0-37.0); Mean Corpuscular Volume 84.1 fL (80.0-94.0); Platelet Count 132 10^3/uL (130-400); Red Cell Dist. Width 11.9 % (11.5-14.5)
[2024-12-31 05:04] LABS: Blood Urea Nitrogen 25 mg/dl (9-20); Calcium 9.2 mg/dl (8.4-10.2); Carbon Dioxide 27 mmol/L (22-30); Chloride 104 mmol/L (98-107); Estimated Creatinine Clearance > 125 ml/min; Glucose 105 mg/dl (70-99); Magnesium 2.2 mg/dl (1.6-2.3); Potassium 3.9 mmol/L (3.5-5.1); Sodium 134 mmol/L (135-145); eGFR > 60.00
[2024-12-31] MEDS: TYLENOL 975 MG PO ×3 (05:51→19:58)
[2024-12-31 05:57] LABS: Glucose - Point of Care 104 mg/dl (70-99)
--- NOTE | 2024-12-31 06:44 | PTCARENOTE ---
Bethany and dana removed per order, patient OOB to chair x1 asst. Increased pain with movement. 2LNC maintained for borderline SpO2 on RA.
[2024-12-31] MEDS: PULMICORT 0.5 MG INH (07:46)
[2024-12-31] MEDS: DUONEB 3 ML INH ×3 (07:46→15:28)
[2024-12-31] MEDS: SENOKOT 8.6 MG PO ×2 (08:08→19:58)
[2024-12-31] MEDS: KCL 20 MEQ PO (08:08)
[2024-12-31] MEDS: PROTONIX 40 MG PO (08:08)
[2024-12-31] MEDS: TAPAZOLE 15 MG PO (08:08)
[2024-12-31] MEDS: LOPRESSOR 12.5 MG PO ×2 (08:08→19:58)
[2024-12-31] MEDS: MAGNESIUM OXIDE 400 MG PO ×2 (08:08→19:58)
[2024-12-31] MEDS: NEURONTIN 100 MG PO ×3 (08:08→21:45)
[2024-12-31] MEDS: LOW STRENGTH ASPIRIN 81 MG PO (08:08)
[2024-12-31] MEDS: LIDOCAINE 4% PATCH 1 PATCH TOPICAL (08:09)
[2024-12-31] MEDS: BACTROBAN 2% OINTMENT 1 APPLIC NASAL ×2 (08:09→19:58)
[2024-12-31] MEDS: PACERONE 200 MG PO ×3 (08:09→21:45)
[2024-12-31 08:20] LABS: Glucose - Point of Care 115 mg/dl (70-99)
--- NOTE | 2024-12-31 08:54 | PTCARENOTE ---
assumed care of pt from previous shift RN, sinus rhythm on tele w HR 90's, VSS, + peripheral pulses, no edema. Lungs diminished, pox 92% on 2L NC. Coughing and deep breathing encouraged. +bs, tolerating PO intake, DTV, minimal amount of drainage
from CTs. Pt medicated for pain. Plan of care reviewed and questions encouraged.
--- NOTE | 2024-12-31 09:23 | W.PN.INTV ---
Addendum entered and electronically signed by Jonny Olsen MD 12/31/24 15:37:
Patient transferring out of CVICU
Account Resolution Expert service will sign off, please call as needed
Original Note:
Today's Communication / Plan
Recommendations
- Incentive spirometry
- Transition insulin per protocol
- Wean oxygen as tolerated
- Outpatient pulmonary follow-up for asthma and pulmonary nodules, information added to discharge section
Assessment
-
Patient is a 54-year-old gentleman with known history of mitral regurgitation. Patient followed up with CT surgery as outpatient and was recommended to have mitral valve repair. He was admitted to the hospital for above procedure and postop was
admitted to CVICU. Account Resolution Expert consultation was requested for further input.
Patient is a 54-year-old male with history of severe mitral regurgitation s/p radical mitral valve repair with left atrial appendage exclusion POD # 1
Titrated off pressors per protocol, currently MAP of 81, not requiring any pressors.
ECHO reviewed with normal EF
PA catheter removed
Management of chest tubes per primary service
Currently extubated, saturating 96% on 2 L supplemental oxygen. Tends to breathe shallow. No respiratory distress or wheezing on exam
CXR suggestive of hypoventilation, low lung volumes.
Maintain supplement oxygen as needed
Known history of asthma, not currently wheezy. Continue scheduled DuoNeb and budesonide for another 24 hours then will switch to inhalers as needed
Can add nebulizers if needed
Aspiration precautions
Encouraged incentive spirometry, OOB/ambulation/early mobility
Advance diet as tolerated following extubation
GI prophylaxis: Protonix
Monitor critical I/O's
Escobedo/chest tube output
Hb/platelets postoperatively, mild drift
Trend CBC for now
Can transfuse if indicated for Hb <7, plt <50 in surgical patients
DVT prophylaxis including SCDs
Insulin protocol initiated and ongoing
Transition to SQ/off as indicated per team
Other medical diagnoses:
- Pulmonary nodule, RLL (11/2024). Newly detected on recent CT scan, 1 nodule is 3 mm and another area appears to be more of an atelectasis. Outpatient follow-up with pulmonary clinic recommended. Information added to discharge section.
- History of asthma, mild intermittent. As needed budesonide, as needed albuterol. Outpatient pulmonary follow-up
- Allergic rhinitis. As needed Flonase and Zyrtec
- Graves' disease. Follows up with endocrinology service. Currently on methimazole
Critical Care time [48] mins -- The patient is admitted for acute critical illness for the treatment of vital organ failure and/or prevention of further life-threatening conditions. Total care includes time spent in review of history, physical exam,
medications, hemodynamic/ventilator parameters, laboratory data, imaging and discussion with house staff, pharmacy, respiratory therapy, port drier, and nursing
Data:
LHC 11/2024: 1. Right dominant circulation with no coronary artery disease.
2. Mildly elevated filling pressures (LVEDP = 14 mmHg at 99.8 kg).
3. Severe degenerative mitral valve regurgitation on echocardiography.
DANYA 11/2024: 1. Normal biventricular size and function without regional wall motion abnormalities.
2. LVEF is 55-60% by visual estimation.
3. Severe mitral regurgitation secondary to flail P2 scallop likely secondary to torn chordae.
4. Compared to TTE from October 11, 2024, no significant change.
CT C/A/P 11/2024: 1. No acute vascular abnormality is identified. No flow-limiting stenoses. No aneurysmal dilation of the aorta.
2. Mild cardiomegaly.
3. Very small nodules/focal opacities right lower lobe as above. Given the size, these are likely to have a benign etiology. If there are significant risk factors, consider follow-up scan in 12 months as below.
4. Additional chronic and incidental findings as detailed above.
ECHO 10/2024: Left ventricle is mildly dilated (LVIDD 6.0 cm, LVIDS 4.2 cm) with low-normal
systolic function. LVEF 50-55%.
Severely dilated left atrium.
Prolapse and partial flail of the posterior mitral valve leaflet resulting in
severe eccentric mitral regurgitation.
Mild tricuspid regurgitation. PASP 30-35 mmHg.
Subjective Dataa
Subjective Data
Date of Service:
Date of Service: December 31, 2024
Subjective:
Patient comfortably lying in bed in no acute distress.
Review of Systems
Genitourinary: Other (All 14 systems reviewed and negative except as stated above in the history of present illness.)
Objective Data
Data Reviewed
Vital Signs / I&O / Oxygen:
Vital Signs
Temp Pulse Resp BP Pulse Ox
98.2 F 99 16 108/69 92
12/31/24 08:00 12/31/24 09:00 12/31/24 09:00 12/31/24 09:00 12/31/24 09:00
Intake and Output
12/30/24 12/31/24 01/01/25
06:59 06:59 06:59
Intake Total 1668.6 / 1668.6 24.6 / 24.6
Output Total 975 / 975 / 10
Balance 693.6 / 693.6 14.6 / 14.6
SaO2 92
Nasal Cannula flow liters per 2
minute
Physical Exam
General: Comfortable
HEENT: Normocephalic
Cardiovascular: S1-S2
Respiratory: Clear, Non-Labored Respirations and Other (Shallow breaths)
GI: Soft and Non Distended
Neurology: Awake and Alert
Skin: Warm
Labs/Micro/Reports
Lab Data
12/31/24 04:12
12/31/24 04:12
Laboratory Results
12/30/24 12/30/24
11:55 13:04
PT 15.7 H
INR 1.22
APTT 26.1
pH 7.29 L 7.35
pCO2 51 H 48
pO2 94 134 H
HCO3 24.5 26.5
O2 Delivery Level
--- NOTE | 2024-12-31 10:17 | PTCARENOTE ---
pt tolerated walk in hallway with cardiac rehab. VSS. Minimal output from CT.
[2024-12-31] MEDS: NSS IV (10:18)
--- NOTE | 2024-12-31 11:12 | PTCARENOTE ---
Ct removed without incident.
[2024-12-31] MEDS: TORADOL 15 MG IV ×2 (11:54→23:08)
--- NOTE | 2024-12-31 13:44 | W.PN.ANS.POP ---
Anesthesia Post Operative
- Anesthesia Post Op Note
Vital Signs Stable-See Nursing Note: Yes
Airway Patent: Yes
Adequate Pain Control: Yes
Change in Mental Status: No
Current Postoperative Nausea & Vomiting: No
Anesthesia Complications: No
General Anesthetic Recall: No
Unplanned Admission: No
Post Op Hydration Adequate: Yes
--- NOTE | 2024-12-31 14:03 | W.PN.CD ---
Today's Communication / Plan
-
Hemodynamically stable. In sinus rhythm.
Continue to monitor on telemetry.
Continue postop care as directed by CT surgery
Impression / Plan
-
Impression/Plan: 54M with hyperthyroidism and severe MR admitted for elective mitral valve repair.
#Severe mitral regurgitation s/p right mini thoracotomy with right femoral artery and vein cannulation & radical mitral valve repair 12/30/[address] Cramer
- ECG with sinus rhythm with postop changes likely related to pericarditis.
- Continue to monitor on telemetry.
.
#Hyperthyroidism/Graves disease
-Chronic, stable.
-Maintain methimazole.
Subjective/Interval History:
Out of bed in chair. For CT removal this morning
DATA:
DANYA, 11/23/2024:
SUMMARY
1. Normal biventricular size and function without regional wall motion abnormalities.
2. LVEF is 55-60% by visual estimation.
3. Severe mitral regurgitation secondary to flail P2 scallop likely secondary to torn chordae.
4. Compared to TTE from October 11, 2024, no significant change.
Cardiac Catheterization, 11/23/2024:
CONCLUSIONS
1. Right dominant circulation with no coronary artery disease.
2. Mildly elevated filling pressures (LVEDP = 14 mmHg at 99.8 kg).
3. Severe degenerative mitral valve regurgitation on echocardiography.
Physical Exam
Vital Signs/Labs
Vital Signs
Temp Pulse Resp BP Pulse Ox
99.2 F 97 18 108/84 94
12/31/24 13:00 12/31/24 13:00 12/31/24 13:00 12/31/24 11:04 12/31/24 13:00
12/30/24 12/31/24 01/01/25
06:59 06:59 06:59
Actual Weight 97.6 kg 99.7 kg
12/31/24 04:12
12/31/24 04:12
PT 15.7 Sec (11.4-14.6) H 12/30/24 11:55
INR 1.22 12/30/24 11:55
APTT 26.1 Sec (23.4-35.0) 12/30/24 11:55
Magnesium 2.2 mg/dl (1.6-2.3) 12/31/24 04:12
Physical Exam
Constitutional: No acute distress
Cardiovascular: Rhythm & rate is regular
Respiratory: Respiratory effort normal
GI: Soft
Data Reviewed
-
Date of Service: December 31, 2024
Medical Decision Making: Reviewed Test Results
Labs: Labs Reviewed by me
[2024-12-31] MEDS: FERRLECIT 110 MG IV (14:18)
[2024-12-31] MEDS: LR 500 IV (14:34)
--- NOTE | 2024-12-31 14:35 | PTCARENOTE ---
pt bladder scanned for 75ml, HR 91, bp 95/68. CT ROBSON made aware. 500ml LR bolus administered as ordered.
--- NOTE | 2024-12-31 16:39 | PTCARENOTE ---
VSS, pt voided, pt able to void. Medicated for pain.
[2024-12-31] MEDS: REMOVE LIDOCAINE PATCH REMOVE (19:59)
--- NOTE | 2024-12-31 20:00 | PTCARENOTE ---
Assumed care of patient at 1900. Patient found resting in bed at time of assessment. Patient is AOx4, follows commands appropriately, moves all extremities. Lung sounds are diminished in the bases, saO2 93% on RA. Heart sounds are audible there is a
rub present on auscultation, patient has normal palpable pulses and no observable edema. Patient is SR on the monitor with v wires present but insulated. Patient has active BS in all four quadrants and is voiding in the bathroom. There is a L
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 There is a R IJ cordis receiving KVO and 18G PIV in L wrist. Call chun within reach.
[2024-12-31] MEDS: MYLICON 80 MG PO (23:13)
[2025-01-01] VITALS (8 sets, daily range): BP systolic 96–120; BP diastolic 63–78; BMI 31.2
--- NOTE | 2025-01-01 00:54 | PTCARENOTE ---
Patient reassessed. At ~2300 patient awoke c/o 8/10 sternal pain and reported 'gas pain'. CT CLASSROOM ASSISTANT notified.l Recieved orders fp 1xtoradol and prn simethicone. Patient found to be desatting saO2 86%. Placed on 4L via NC saO2 nik to 94%. Successful
void. Remains SR on the monitor. Call chun within reach.
[2025-01-01 03:35] LABS: Hematocrit 29.9 % (39.0-52.0); Hemoglobin 10.3 g/dL (13.0-18.0); Mean Corp Hgb Conc. 34.4 g/dL (33.0-37.0); Mean Corpuscular Volume 84.7 fL (80.0-94.0); Platelet Count 118 10^3/uL (130-400); Red Cell Dist. Width 12.2 % (11.5-14.5)
[2025-01-01 04:02] LABS: Blood Urea Nitrogen 25 mg/dl (9-20); Calcium 9.1 mg/dl (8.4-10.2); Carbon Dioxide 29 mmol/L (22-30); Chloride 98 mmol/L (98-107); Estimated Creatinine Clearance 114 ml/min; Glucose 138 mg/dl (70-99); Magnesium 2.4 mg/dl (1.6-2.3); Potassium 4.6 mmol/L (3.5-5.1); Sodium 129 mmol/L (135-145); eGFR > 60.00
--- NOTE | 2025-01-01 05:43 | W.PN.CT ---
Today's Communication / Plan
-
-pod #2
-no issues overnight
-low UO- 250/650 cc out in 12/24 hrs
-CTs out
-Na 134->129, +2.1 kg yesterday, pending today's weigt.
-platelets 132->118 today
-current meds (ASA, Lopressor, Amio, Protonix, Tapazole)
-encourage IS, OOB- still on 4 L NC
Assessment / Plan
-
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
2 [place]-Arvin cords and a 34 mm band angioplasty); LAAE [40 mm device] on 12/30/24, pod #2
- Intraop DANYA: LVEF preop was 50% with no significant regional wma. Following surgery, his EF actually looks significantly better without inotropic support. There were no new regional wall motion abnormalities. There was no residual flow in the
left atrial appendage on DANYA.
- Severe mitral valve insufficiency, symptomatic
- Asthma
- Allergies and nasal polyp
- Class 1 obesity, BMI 30
- Hx Covid
- Migraines
- Hx sinus surgery
- Appendectomy
- Hernia repair
- Acute postop blood loss anemia - stble, no transfusion
- Acute postop atelectasis
- Acute postop hypovolemia with subsequent hypervolemia
Subjective
-
Date of Service: January 01, 2025
Objective Data
-
Lab Results
01/01/25 03:18
01/01/25 03:18
PT 15.7 Sec (11.4-14.6) H 12/30/24 11:55
INR 1.22 12/30/24 11:55
APTT 26.1 Sec (23.4-35.0) 12/30/24 11:55
Vital Signs
Vital Signs
Temp Pulse Resp BP Pulse Ox
98.3 F 96 22 115/76 93
01/01/25 03:44 12/31/24 23:17 12/31/24 23:55 12/31/24 23:17 12/31/24 23:[address]
CT Intake/Output/Weight
12/31/24 12/31/24 01/01/25
06:59 18:59 06:59
Intake Total 815.3 / 1668.6 856.9 / 896.9 40 / 896.9
Output Total 550 / 975 410 / 660 250 / 660
Balance 265.3 / 693.6 446.9 / 236.9 -210 / 236.9
SaO2: 93
Physical Exam
-
General: Awake and Oriented
Cardiovascular: Regular rate & rhythm and Rub
Respiratory: Clear and Equal
Incision: Clean, Dry and Intact
Extremities: No Edema and No Erythema
Data Reviewed
-
Lab Results: Results Reviewed
Medications: Active Meds Reviewed
Chest X-Ray: Report Reviewed and Image Reviewed
ECG: Report Reviewed
--- NOTE | 2025-01-01 06:00 | PTCARENOTE ---
Patient reassessed. Patient on 3L via NC for maintaining sat.92%. AM labs obtained. AM hygiene care provided. CT dressing changed. Given prn simethicone. Added scheduled mucinex to aid with secretion clearance.
[2025-01-01] MEDS: TYLENOL 975 MG PO ×3 (06:32→20:01)
[2025-01-01] MEDS: MYLICON 80 MG PO (06:32)
[2025-01-01] MEDS: MUCINEX 600 MG PO ×2 (06:33→20:02)
[2025-01-01] MEDS: MAGNESIUM OXIDE 400 MG PO ×2 (08:02→20:02)
[2025-01-01] MEDS: ULTRAM 50 MG PO ×2 (08:02→22:04)
[2025-01-01] MEDS: LOW STRENGTH ASPIRIN 81 MG PO (08:02)
[2025-01-01] MEDS: PROTONIX 40 MG PO (08:02)
[2025-01-01] MEDS: SENOKOT 8.6 MG PO ×2 (08:02→20:02)
[2025-01-01] MEDS: PACERONE 200 MG PO ×3 (08:02→22:02)
[2025-01-01] MEDS: LASIX 40 MG IV (08:03)
[2025-01-01] MEDS: TAPAZOLE 15 MG PO (08:03)
[2025-01-01] MEDS: NEURONTIN 100 MG PO ×3 (08:03→22:02)
[2025-01-01] MEDS: BACTROBAN 2% OINTMENT 1 APPLIC NASAL ×2 (08:03→22:04)
[2025-01-01] MEDS: KLOR-CON 20 MEQ PO (08:03)
[2025-01-01] MEDS: LIDOCAINE 4% PATCH 1 PATCH TOPICAL (08:05)
--- NOTE | 2025-01-01 08:43 | W.PN.CD ---
Today's Communication / Plan
-
Remains in sinus rhythm.
ECG and rub on exam consistent with pericarditis. Colchicine being added. May also consider use of NSAIDs. Await additional assessment by CT surgery.
Impression / Plan
-
Impression/Plan: 54M with hyperthyroidism and severe MR admitted for elective mitral valve repair.
#Severe mitral regurgitation s/p right mini thoracotomy with right femoral artery and vein cannulation & radical mitral valve repair 12/30/[address] Cramer
- ECG with sinus rhythm with postop changes likely related to pericarditis and patient with rub on exam with tubes/drains out.
- Continue to monitor on telemetry.
.
# Pericarditis
-Rub on exam with tubes and drains out today.
-Colchicine being added. Can also consider use of NSAIDs. CT surgery to reassess.
-Patient has incisional pain but also possible some of his discomfort is related to pericarditis.
#Hyperthyroidism/Graves disease
-Chronic, stable.
-Maintain methimazole.
Subjective/Interval History:
Out of bed in chair. For CT removal this morning
DATA:
DANYA, 11/23/2024:
SUMMARY
1. Normal biventricular size and function without regional wall motion abnormalities.
2. LVEF is 55-60% by visual estimation.
3. Severe mitral regurgitation secondary to flail P2 scallop likely secondary to torn chordae.
4. Compared to TTE from October 11, 2024, no significant change.
Cardiac Catheterization, 11/23/2024:
CONCLUSIONS
1. Right dominant circulation with no coronary artery disease.
2. Mildly elevated filling pressures (LVEDP = 14 mmHg at 99.8 kg).
3. Severe degenerative mitral valve regurgitation on echocardiography.
Physical Exam
Vital Signs/Labs
Vital Signs
Temp Pulse Resp BP Pulse Ox
99.3 F 88 20 105/78 94
01/01/25 07:59 01/01/25 07:49 01/01/25 07:59 01/01/25 07:49 01/01/25 07:59
12/31/24 01/01/25 01/02/25
06:59 06:59 06:59
Actual Weight 99.7 kg 101.5 kg
01/01/25 03:18
01/01/25 03:18
PT 15.7 Sec (11.4-14.6) H 12/30/24 11:55
INR 1.22 12/30/24 11:55
APTT 26.1 Sec (23.4-35.0) 12/30/24 11:55
Magnesium 2.4 mg/dl (1.6-2.3) H 01/01/25 03:18
Physical Exam
Constitutional: No acute distress
Cardiovascular: Rhythm & rate is regular and Other (Rub noted on exam)
Respiratory: Wheeze Absent and Rhonchi Absent
GI: Soft
Neuro/Psych: Alert
Data Reviewed
-
Date of Service: January 01, 2025
Medical Decision Making: Reviewed Test Results
X-Ray/CT/US/MRI/NUC/PET: Report Reviewed by me
Medical Tests (PFT, Pathology etc): Report Reviewed by me
Labs: Labs Reviewed by me
[2025-01-01] MEDS: MOTRIN 800 MG PO ×2 (09:03→16:06)
[2025-01-01] MEDS: COLCHICINE 0.6 MG PO ×2 (09:03→20:02)
[2025-01-01] MEDS: LOPRESSOR 12.5 MG PO ×2 (09:03→20:01)
--- NOTE | 2025-01-01 09:19 | PTCARENOTE ---
Received pt from mini shifter RN; pt AAOX3 and resting comfortably in bed; NSR on monitor and VSS; + rub; pain management adjusted by CTPA and medications given; RIJ Cordis and PIV x1 patent; lungs diminished; IS 750; hypoactive bowel sounds; pt
voiding yellow urine; palpable pulses throughout; no edema noted; all surgical sites C/D/I; see nursing documentation for further details.
--- NOTE | 2025-01-01 09:54 | PTCARENOTE ---
Epicardial V-wire insulated.
--- NOTE | 2025-01-01 12:51 | PTCARENOTE ---
Assessment unchanged; NSR on monitor and VSS; pt ambulating hallways.
[2025-01-01] MEDS: FERRLECIT 110 MG IV (13:40)
--- NOTE | 2025-01-01 17:21 | PTCARENOTE ---
NSR on monitor and VSS; RIJ Cordis removed per CTPA order; pt ambulating hallways; assessment unchanged.
[2025-01-01] MEDS: NSS IV (18:14)
--- NOTE | 2025-01-01 20:00 | PTCARENOTE ---
Assumed care of patient at 1900 am, Patient Alert and oriented, Ambulating in munoz. NSR on monitor, + pulses, BP 120/70 SpO2 93% on room air, lung sounds diminished at bases. BS present, no BM, Voids clear yellow urine. Surgical site CDI, Wires
insulated, pain controlled.
[2025-01-01] MEDS: REMOVE LIDOCAINE PATCH 1 PATCH REMOVE (22:04)
[2025-01-02] VITALS (12 sets, daily range): BP systolic 99–132; BP diastolic 60–81; PULSE 76; O2SAT 95–98; BMI 30.8
[2025-01-02] MEDS: MOTRIN 800 MG PO (00:46)
--- NOTE | 2025-01-02 02:14 | W.PN.CT ---
Today's Communication / Plan
-
No issues overnight
Treating pericarditis = Ibuprofen and colchicine�
Diuresis on 01/01 received 40 mg of lasix (- 2970�neg)�
Pacer wires needed to be cut�
Current meds (ASA, Lopressor, Amio, Protonix, Tapazole)�
Encourage OOB and IS�
Plan for discharge�
Assessment / Plan
-
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
2 [place]-Arvin cords and a 34 mm band angioplasty); LAAE [40 mm device] on 12/30/24, pod #3
- Intraop DANYA: LVEF preop was 50% with no significant regional wma. Following surgery, his EF actually looks significantly better without inotropic support. There were no new regional wall motion abnormalities. There was no residual flow in the
left atrial appendage on DANYA.
- Severe mitral valve insufficiency, symptomatic
- Asthma
- Allergies and nasal polyp
- Class 1 obesity, BMI 30
- Hx Covid
- Migraines
- Hx sinus surgery
- Appendectomy
- Hernia repair
- Acute postop blood loss anemia - stble, no transfusion
- Acute postop atelectasis
- Acute postop hypovolemia with subsequent hypervolemia
Subjective
-
Date of Service: January 02, 2025
Objective Data
-
PT 15.7 Sec (11.4-14.6) H 12/30/24 11:55
INR 1.22 12/30/24 11:55
APTT 26.1 Sec (23.4-35.0) 12/30/24 11:55
Vital Signs
Vital Signs
Temp Pulse Resp BP Pulse Ox
98.3 F 73 20 117/75 93
01/01/25 19:55 01/02/25 00:00 01/01/25 19:55 01/01/25 22:04 01/01/25 23:25
CT Intake/Output/Weight
01/01/25 01/01/25 01/02/25
06:59 18:59 06:59
Intake Total 40 / 896.9 230 / 430 200 / 430
Output Total 650 / 1060 2650 / 3000 350 / 3000
Balance -610 / -163.1 -2420 / -2570 -150 / -2570
SaO2: 93
[2025-01-02 04:21] LABS: Hematocrit 27.4 % (39.0-52.0); Hemoglobin 9.7 g/dL (13.0-18.0); Mean Corp Hgb Conc. 35.4 g/dL (33.0-37.0); Mean Corpuscular Volume 85.1 fL (80.0-94.0); Platelet Count 109 10^3/uL (130-400); Red Cell Dist. Width 12.0 % (11.5-14.5)
[2025-01-02 04:40] LABS: Blood Urea Nitrogen 18 mg/dl (9-20); Calcium 9.0 mg/dl (8.4-10.2); Carbon Dioxide 27 mmol/L (22-30); Chloride 100 mmol/L (98-107); Estimated Creatinine Clearance > 125 ml/min; Glucose 111 mg/dl (70-99); Magnesium 2.2 mg/dl (1.6-2.3); Potassium 4.2 mmol/L (3.5-5.1); Sodium 130 mmol/L (135-145); eGFR > 60.00
--- NOTE | 2025-01-02 06:00 | PTCARENOTE ---
patient reports having mulitple loose stools in drop wire operator, voiding independently. Patient denies pain
[2025-01-02] MEDS: TYLENOL 975 MG PO ×3 (06:24→20:49)
[2025-01-02] MEDS: TAPAZOLE 15 MG PO (09:05)
[2025-01-02] MEDS: MAGNESIUM OXIDE 400 MG PO ×2 (09:05→20:49)
[2025-01-02] MEDS: BACTROBAN 2% OINTMENT 1 APPLIC NASAL ×2 (09:05→20:49)
[2025-01-02] MEDS: PROTONIX 40 MG PO (09:06)
[2025-01-02] MEDS: LOW STRENGTH ASPIRIN 81 MG PO (09:06)
[2025-01-02] MEDS: MUCINEX 600 MG PO ×2 (09:06→20:49)
[2025-01-02] MEDS: NEURONTIN 100 MG PO ×3 (09:06→22:38)
[2025-01-02] MEDS: PACERONE 200 MG PO ×3 (09:06→22:38)
[2025-01-02] MEDS: LOPRESSOR 12.5 MG PO ×2 (09:06→20:49)
[2025-01-02] MEDS: ZOFRAN 4 MG IV (09:11)
[2025-01-02] MEDS: LIDOCAINE 4% PATCH TOPICAL (09:23)
[2025-01-02] MEDS: SENOKOT PO (09:24)
[2025-01-02] MEDS: COLCHICINE PO (09:24)
--- NOTE | 2025-01-02 10:00 | PTCARENOTE ---
Patient received from assembler 1st shift resting in bed, sleepy but arousable and appropriate, denies sternal pain but c/o GI discomfort. NSR via cm, SaO2 @ 95% on RA. All procedural sites stable. Patient assisted oob to chair, had breakfast. Follow up
echo completed. Patient updated to plan of care, in agreement. See work list for full assessment and interventions performed.
[2025-01-02] MEDS: NSS IV (10:05)
--- NOTE | 2025-01-02 10:11 | W.PN.CD ---
Today's Communication / Plan
-
Continue routine postop care.
Continue colchicine for postoperative pericarditis.
Pain control as per CT surgery.
Impression / Plan
-
Impression/Plan: 54M with hyperthyroidism and severe MR admitted for elective mitral valve repair.
#Severe mitral regurgitation s/p right mini thoracotomy with right femoral artery and vein cannulation & radical mitral valve repair 12/30/[address] Cramer
-ECG with sinus rhythm with postop changes likely related to pericarditis
-Continue to monitor on telemetry.
- Continue aspirin 81 mg daily.
#Postoperative pericarditis
-Rub on exam with diffuse ST elevations on ECG. Chest pain improving.
-Continue colchicine. No NSAIDs due to bleeding risk.
#Hyperthyroidism/Graves disease
-Chronic, stable.
-Maintain methimazole.
Subjective/Interval History:
Out of bed in chair. He is having abdominal pain and nausea today but chest pain has improved.
DATA:
DANYA, 11/23/2024:
SUMMARY
1. Normal biventricular size and function without regional wall motion abnormalities.
2. LVEF is 55-60% by visual estimation.
3. Severe mitral regurgitation secondary to flail P2 scallop likely secondary to torn chordae.
4. Compared to TTE from October 11, 2024, no significant change.
Cardiac Catheterization, 11/23/2024:
CONCLUSIONS
1. Right dominant circulation with no coronary artery disease.
2. Mildly elevated filling pressures (LVEDP = 14 mmHg at 99.8 kg).
3. Severe degenerative mitral valve regurgitation on echocardiography.
Physical Exam
Vital Signs/Labs
Vital Signs
Temp Pulse Resp BP Pulse Ox
98.5 F 83 16 128/73 95
01/02/25 08:55 01/02/25 10:00 01/02/25 08:55 01/02/25 09:06 01/02/25 08:55
01/01/25 01/02/25 01/03/25
06:59 06:59 06:59
Actual Weight 223 lb 12.307 oz 220 lb 14.451 oz
01/02/25 03:57
01/02/25 03:57
PT 15.7 Sec (11.4-14.6) H 12/30/24 11:55
INR 1.22 12/30/24 11:55
APTT 26.1 Sec (23.4-35.0) 12/30/24 11:55
Magnesium 2.2 mg/dl (1.6-2.3) 01/02/25 03:57
Physical Exam
Constitutional: No acute distress and Comfortable
Cardiovascular: Rhythm & rate is regular, S1S2 is normal and Murmur/rub/gallop absent
Respiratory: Respiratory effort normal and Lungs clear to auscul.
Neuro/Psych: AO x 3
Data Reviewed
-
Date of Service: January 02, 2025
Medical Decision Making: Reviewed Test Results, Test Interpretation and Review of Case with other Provider
EKG: Tracing Personally Visualized and interpreted
Echo: Report Reviewed by me
Labs: Labs Reviewed by me
--- NOTE | 2025-01-02 10:30 | PTCARENOTE ---
Patient assisted back to bed, temporary pacing wires cut by ROBSON Manzo. Patient tolerated well.
--- NOTE | 2025-01-02 10:55 | CM ---
Reviewed chart. Met with Mr. Morrison to review discharge plans. He states he is feeling okay. He maybe to go home soon. He states prior to admission he resides with her spouse in a two story home with one step to enter. He states he has a full
flight of steps to get to bedroom/full bathroom. He states he has a powder room on the first floor. He states prior to admission he was independent with ambulation and adls. He ambulated 400 feet and did the stairs today. He states he does not
have any DME in the home. He states he has a prescription plan and [facility]. He states his spouse works outside the home. She maybe able to stay home one day, but she will be home during the evening. We reviewed a home visit by the
Transitional Care Nurse. He is agreeable to home visit. Medical work-up in progress. The discharge plan is to return [facility] with his spouse and a home visit by the Transitional Care Nurse when medically stable.
--- NOTE | 2025-01-02 11:52 | W.PN.UPDATE ---
Update Note
Progress Note Update
No pacing required. Epicardial ventricular wires clipped to skin level. Motrin DC'd due to GI upset. Cochicine dose decreased to 0.6mg daily due to episode of diarrhea.
--- NOTE | 2025-01-02 12:40 | PTCARENOTE ---
VS obtained, assessment stable. Patient ambulating ad sarina.
[2025-01-02] MEDS: FERRLECIT 110 MG IV (14:23)
[2025-01-02] MEDS: ULTRAM 50 MG PO (16:47)
[2025-01-02] MEDS: MYLICON 80 MG PO (16:47)
--- NOTE | 2025-01-02 16:56 | PTCARENOTE ---
VS obtained, assessment unchanged.
[2025-01-02] MEDS: REMOVE LIDOCAINE PATCH REMOVE (20:49)
--- NOTE | 2025-01-02 21:00 | PTCARENOTE ---
Assumed care of pt from dayshift RN. Walking rounds completed. Pt AAOx3. Independent in room. SR on the tele monitor. HR 80s. No rub auscultated. BP stable. Palpable pulses throughout. No edema noted. Pt on RA. POX 96-97%. Lung sounds diminished in
B/L bases. Deep breathing and IS encouraged. Pt abdomen nontender. Pt c/o belly feeling 'unsettled.' No full BM but pt reports a small amount of loose stool. +BSx4. Stool softener on hold. Pt voiding w/o issue. All surgical sites stable. PIV x1
intact. Pt denies significant pain at this time. Pt updated w/ plan for the night.
--- NOTE | 2025-01-03 | PTCARENOTE ---
No acute changes an assessment. VSS. Pt voiding in the bathroom. Pt reports some stomach pain relief. Call chun within reach.
[2025-01-03 02:43] VITALS: BP 130/82
--- NOTE | 2025-01-03 03:05 | PTCARENOTE ---
No change in assessment. VSS. Voiding as needed. Labs drawn and sent. No c/o pain at this time. Call chun within reach.
[2025-01-03 03:23] LABS: Hematocrit 30.5 % (39.0-52.0); Hemoglobin 10.4 g/dL (13.0-18.0); Mean Corp Hgb Conc. 34.1 g/dL (33.0-37.0); Mean Corpuscular Volume 85.2 fL (80.0-94.0); Platelet Count 161 10^3/uL (130-400); Red Cell Dist. Width 12.1 % (11.5-14.5)
[2025-01-03 03:31] LABS: Blood Urea Nitrogen 11 mg/dl (9-20); Calcium 9.1 mg/dl (8.4-10.2); Carbon Dioxide 28 mmol/L (22-30); Chloride 101 mmol/L (98-107); Estimated Creatinine Clearance > 125 ml/min; Glucose 97 mg/dl (70-99); Magnesium 2.1 mg/dl (1.6-2.3); Potassium 3.7 mmol/L (3.5-5.1); Sodium 134 mmol/L (135-145); eGFR > 60.00
--- NOTE | 2025-01-03 04:06 | W.PN.CT ---
Today's Communication / Plan
-
Plan:
-No major issues overnight. Hemodynamically and neurologically intact
-Off all drips
-Gas pain and diarrhea has subsided since decrease in Colchicine and d/c of Motrin/Senokot
-Temporary V wire was cut yesterday without incident
-Repeat echo yesterday 01/02/25 showed a well seated MV repair with normal gradients, no MR, mildly reduced RV systolic function, EF down 43% from 50-55%
-Will transition Lopressor to Toprol XL given reduced LV Function
-Cont. current meds (ASA, Colchicine, Toprol XL, Amiodarone, Methimazole)
-Will replete K of 3.7
-F/U 2-view cxr
-Encourage use of IS
-OOB into chair/Ambulate
-D/C home
Assessment / Plan
-
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
2 [place]-Arvin cords and a 34 mm band angioplasty); LAAE [40 mm device] on 12/30/24, pod #4
- Intraop DANYA: LVEF preop was 50% with no significant regional wma. Following surgery, his EF actually looks significantly better without inotropic support. There were no new regional wall motion abnormalities. There was no residual flow in the
left atrial appendage on DANYA.
- Severe mitral valve insufficiency, symptomatic
- Asthma
- Allergies and nasal polyp
- Class 1 obesity, BMI 30
- Hx Covid
- Migraines
- Hx sinus surgery
- Appendectomy
- Hernia repair
- Acute postop blood loss anemia - stble, no transfusion
- Acute postop atelectasis
- Acute postop hypovolemia with subsequent hypervolemia
Discussed patient care with: Cardiology, Nursing, Respiratory Therapy, Pharmacy and Care Team
Subjective
-
Date of Service: January 03, 2025
Pt offers no complaints, gas pain and diarrhea has subsided since decrease in Colchicine and d/c of Motrin/Senokot
Objective Data
-
Lab Results
01/03/25 02:50
01/03/25 02:50
PT 15.7 Sec (11.4-14.6) H 12/30/24 11:55
INR 1.22 12/30/24 11:55
APTT 26.1 Sec (23.4-35.0) 12/30/24 11:55
Vital Signs
Vital Signs
Temp Pulse Resp BP Pulse Ox
99.6 F 80 16 130/82 95
01/03/25 02:43 01/03/25 02:43 01/03/25 02:43 01/03/25 02:43 01/03/25 02:43
CT Intake/Output/Weight
01/02/25 01/02/25 01/03/25
06:59 18:59 06:59
Intake Total 400 / 630 960 / 960
Output Total 700 / 3350 2050 / 3200 1150 / 3200
Balance -300 / -2720 -1090 / -2240 -1150 / -2240
SaO2: 95 (RA)
Physical Exam
-
General: Awake, Oriented and AOx3
Cardiovascular: Regular rate & rhythm, No Murmurs, No Rub and No Gallop
Respiratory: Decreased Breath Sounds (at bases, otherwise clear )
Sternum: Stable
Incision: Clean, Dry, Intact and Dressing Intact
Extremities: Other (+trace edema)
Data Reviewed
-
Lab Results: Results Reviewed
Medications: Active Meds Reviewed
Chest X-Ray: Report Reviewed and Image Reviewed
ECG: Report Reviewed and Image Reviewed
[2025-01-03] MEDS: TYLENOL 975 MG PO (06:10)
[2025-01-03] MEDS: KCL 40 MEQ PO (06:11)
[2025-01-03 06:13] VITALS: BMI 30.4
--- NOTE | 2025-01-03 07:44 | W.DCSUMMARY ---
Discharge Summary
Discharge Data
Date of Admission: 12/30/24
Date of Discharge: 01/03/25
-
Pending Results: No
Hospital Course
Primary care physician: Barbi Newman
Outpatient white kid buffer: Jeremie Veras
Inpatient consultants: [facility], pulmonary television repairer
Procedures:
1. Mitral valve repair, left atrial appendage clip
Primary Diagnosis:
1. 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
Secondary Diagnoses:
1. Asthma
2. Allergies and nasal polyp
3. Class I Obesity
HPI: 54-year-old male was electively admitted on 12/30/2024 for mitral valve repair due to exertional shortness of breath and severe mitral regurgitation.
Hospital course: Patient was taken to the operating room and underwent a right mini thoracotomy with right femoral artery and vein cannulation, radical mitral valve repair (triangular section of P2, free edge remodeling with closure of the cleft
and P1 P2 and placement of 2 [place]-Arvin cords and a 34 mm band angioplasty), and left atrial appendage exclusion [#40 mm device] by Dr. Darren Cramer. The postprocedure DANYA reported an EF of 50-55% with mitral valve mean gradient of 3 mmHg. For
further details please see operative note. Patient received no intraoperative blood products and was extubated in the operating room. He returned to CVICU Levophed, and insulin. He was noted to have hypercarbic respiratory insufficiency which
corrected with temporary BiPAP use. On postoperative day 1, chest tubes were removed. Colchicine and ibuprofen provided on postoperative day #2 for pericarditis. Right IJ cordis was removed and patient diuresed with 40 mg of IV Lasix. On
postoperative day #3, patient developed GI upset and diarrhea. Motrin was discontinued and colchicine decreased to 0.6 mg daily. Stool softeners were discontinued. Epicardial ventricular wires were clipped to skin level. Predischarge TTE reported
an EF of 45%, no mitral regurgitation, and mitral valve mean gradient of 3-4 mmHg. Postoperative day #4, patient was feeling better and amiodarone discontinued as no perioperative atrial fibrillation was noted. A Vicryl stitch in the right anterior
thoracotomy will dissolve. A two-view chest x-ray reported no acute pulmonary abnormality. Labs on day of discharge: Hemoglobin 10.4, WBC 6.5, creatinine 0.7. Patient will be followed by the transitional nurse team after discharge.
Home medication changes:
Colchicine for pericarditis
Protonix for GI prophylaxis while on Colchicine
Discharge Plan
-
Patient Disposition: Home (Routine Discharge)
Discharge Diagnosis/Procedures: mitral valve repair, left atrial appendage clip (12/30/24)
Condition: Good
Diet: No restrictions
Activity: No strenuous activity
Driving Restrictions: Not until seen by your Dr
Bathing Restrictions: OK to Shower
Other Services: Cardiac Rehab
Specialty Instructions: Weigh Daily- Call MD for wt gain/loss 3 lbs overnight/5 lbs in 1 week
Referrals:
CT Transitional Care Nurse [Outside] - in one to two days
Referral Note:
The Cardiothoracic Transitional Care Nurse will call you to set up a visit in 1-2 days.
[facility]. Cardiac Rehab [Outside] - 01/30/25 9:00 am
Referral Note: Cardiac Rehab Orientation and� First Exercise appointment is on _Tuesday 01/30 at 9:00 am._
The Cardiac Rehab gym is located on the first floor of the [facility].
Odilia Cottrell NP [Specified Professional Personl, Cardiology] - 02/07/25 9:40 am
Jonny Olsen MD [Active, Pulmonary Medicine] - in one to two months
Charles Jones MD [Family Provider, Family Practice] - in four to six weeks
Referral Note: Please make an appointment in four to six weeks.
Darren Cramer MD [Active, Cardiac Surgery] - 01/30/25 2:15 pm
Prescriptions:
New
acetaminophen 325 mg Tablet
650 mg PO Q4HPRN PRN (Reason: mild pain,headache,temp >101F ) Qty: 0 0RF
pantoprazole 40 mg Tablet,Delayed Release (Dr/Ec)
40 mg PO DAILY Qty: 30 0RF
cyclobenzaprine 10 mg Tablet
5 mg PO Q8HPRN PRN (Reason: muscle spasm) Qty: 10 0RF
tramadol 50 mg Tablet
50 mg PO Q6HPRN PRN (Reason: pain) Qty: 20 0RF
metoprolol succinate 25 mg Tablet Extended Release 24 Hr
25 mg PO DAILY Qty: 30 2RF
colchicine 0.6 mg Tablet
0.6 mg PO DAILY Qty: 30 1RF
Continued
aspirin 81 mg Tablet
81 mg PO DAILY
methimazole 15 mg Tablet
15 mg PO DAILY
Advil Cold and Sinus 30-200 mg Capsule
1 cap PO PRN PRN (Reason: cold)
albuterol sulfate 90 mcg/actuation Hfa Aerosol Inhaler
2 puff INHALATION QID PRN (Reason: sob)
fluticasone propionate 50 mcg/actuation [place],Suspension
1 spray INTRANASAL DAILY PRN (Reason: congestion)
budesonide 1 mg/2 mL Suspension For Nebulization
1 mg INHALATION DAILY PRN (Reason: congestion)
cetirizine [Zyrtec] 10 mg Tablet
10 mg PO DAILY
Discharge Orders:
Discharge Patient (As Directed); Ordered 01/03/25
Ordered By: Lisa Manzo
Care Plan Goals
Care Plan Goals:
Problem: Readiness for enhanced knowledge related to diagnosis and treatment plan
Goal: Understand your diagnosis and treatment plan needs, including medications if applicable.
Instructions: Know your diagnosis, underlying causes and treatment plan options, including medications if applicable. Consult with your health care team to learn about your diagnosis and treatment plan, including medications if applicable.
Discharge Date and Time
Print Language: AFGHAN
[2025-01-03 08:29] VITALS: BP 108/71
--- NOTE | 2025-01-03 08:30 | PTCARENOTE ---
Assumed care of patient. Walking rounds completed with previous RN. Pt assessed while he was sitting in the chair. Pt alert and oriented x4. Rates 'discomfort' 3/10. Denies nausea, shortness of breath. [place] with equal strength throughout, ambulating
in the room and halls independently. NSR on tele with rates in the 80s. BP 108/71. Heart tones audible. Bilateral radial and DP pulses palpable. Trace lower extremity edema. POX 95% on RA. Lungs diminished in the bases. IS encouraged. Occasional
productive cough with [place] sputum report. Abdomen soft, round, nontender. +BS. Pt denies full BM since surgery-see MAR. Pt urinating independently, reports no issues. Right lateral puncture sites and incision approximated, LEATHER COVERER. Right forearm 18g PIV
intact. See MAR for medication administration. See worklist for complete nursing assessment. Plan of care reviewed and patient in agreement.
[2025-01-03] MEDS: BACTROBAN 2% OINTMENT 1 APPLIC NASAL (08:31)
[2025-01-03] MEDS: MAGNESIUM OXIDE 400 MG PO (08:32)
[2025-01-03] MEDS: MUCINEX 600 MG PO (08:32)
[2025-01-03] MEDS: COLCHICINE 0.6 MG PO (08:32)
[2025-01-03] MEDS: LOW STRENGTH ASPIRIN 81 MG PO (08:32)
[2025-01-03] MEDS: PROTONIX 40 MG PO (08:32)
[2025-01-03] MEDS: NSS IV (08:32)
[2025-01-03] MEDS: NEURONTIN 100 MG PO (08:32)
[2025-01-03] MEDS: TOPROL XL 25 MG PO (08:32)
[2025-01-03] MEDS: TAPAZOLE 15 MG PO (08:32)
[2025-01-03] MEDS: MILK OF MAGNESIA 30 ML PO (08:42)
--- NOTE | 2025-01-03 11:29 | W.PN.CD ---
Today's Communication / Plan
-
Ready for discharge
Continue colchicine 0.6 mg daily x 3 months for postoperative pericarditis
Continue aspirin 81 mg daily and metoprolol 25 mg daily (mildly reduced EF)
Cardiac rehab
He has follow-up scheduled in our office on 02/07/2025.
Impression / Plan
-
Impression/Plan: 54M with hyperthyroidism and severe MR admitted for elective mitral valve repair.
#Severe mitral regurgitation s/p right mini thoracotomy with right femoral artery and vein cannulation & radical mitral valve repair 12/30/[address] Cramer
-ECG with sinus rhythm with postop changes likely related to pericarditis
-Continue to monitor on telemetry.
-Continue aspirin 81 mg daily.
-TTE 01/02/2025: LVEF 43%, mildly reduced RV function, s/p mitral valve repair with normal gradients and no residual MR
-Continue metoprolol 25 mg daily for mildly reduced EF. Suspect related to bypass. Repeat TTE in 3 mos
#Postoperative pericarditis
-Rub on exam with diffuse ST elevations on ECG. Chest pain improving.
-Continue colchicine x3 months. No NSAIDs due to bleeding risk.
#Hyperthyroidism/Graves disease
-Chronic, stable.
-Maintain methimazole.
Subjective/Interval History:
Abdominal pain has improved. Passing gas. No BM yet. Up and walking around.
DATA:
DANYA, 11/23/2024:
SUMMARY
1. Normal biventricular size and function without regional wall motion abnormalities.
2. LVEF is 55-60% by visual estimation.
3. Severe mitral regurgitation secondary to flail P2 scallop likely secondary to torn chordae.
4. Compared to TTE from October 11, 2024, no significant change.
Cardiac Catheterization, 11/23/2024:
CONCLUSIONS
1. Right dominant circulation with no coronary artery disease.
2. Mildly elevated filling pressures (LVEDP = 14 mmHg at 99.8 kg).
3. Severe degenerative mitral valve regurgitation on echocardiography.
Physical Exam
Vital Signs/Labs
Vital Signs
Temp Pulse Resp BP Pulse Ox
98.2 F 82 16 108/71 95
01/03/25 08:00 01/03/25 10:00 01/03/25 08:00 01/03/25 08:29 01/03/25 08:30
01/02/25 01/03/25 01/04/25
06:59 06:59 06:59
Actual Weight 220 lb 14.451 oz 217 lb 9.54 oz
01/03/25 02:50
01/03/25 02:50
PT 15.7 Sec (11.4-14.6) H 12/30/24 11:55
INR 1.22 12/30/24 11:55
APTT 26.1 Sec (23.4-35.0) 12/30/24 11:55
Magnesium 2.1 mg/dl (1.6-2.3) 01/03/25 02:50
Physical Exam
Constitutional: No acute distress and Comfortable
Cardiovascular: Rhythm & rate is regular, Pedal edema is absent, S1S2 is normal and Murmur/rub/gallop absent
Respiratory: Respiratory effort normal and Lungs clear to auscul.
Neuro/Psych: AO x 3
Other: Other (sternal wound bandaged)
Data Reviewed
-
Date of Service: January 03, 2025
Medical Decision Making: Reviewed Test Results, Independent Historian Assessment, Test Interpretation and Review of Case with other Provider
EKG: Tracing Personally Visualized and interpreted
Echo: Tracing Personally Visualized and interpreted
Labs: Labs Reviewed by me
--- NOTE | 2025-01-03 11:40 | PTCARENOTE ---
Pt showered independently. Tolerated.
--- NOTE | 2025-01-03 11:50 | PTCARENOTE ---
Discharge order received. PIV d/c. All discharge information reviewed with patient and his . All questions answered. Pt taken out of hospital via wheelchair.
--- NOTE | 2025-01-03 12:15 | CM ---
Reviewed chart. Met with and Mrs. Morrison to review discharge plans. He states he is feeling better and maybe able to go home soon. We reviewed a home visit by the Transitional Care Nurse. He is agreeable to a home visit Prior to admission
he resides with her spouse in a two story home with one step to enter. He has a full flight of steps to get to bedroom/full bathroom. He has a powder room on the first floor. Prior to admission he was independent with ambulation and adls. He
does not have any DME in the home. He has a prescription plan and [facility]. His spouse works outside the home. She maybe able to stay home one day, but she will be home during the evening. Medical work-up in progress. The discharge plan is to
return home with his spouse and a home visit by the Transitional Care Nurse when medically stable.
== END 2025-01-03 11:55 | disposition home or self-care (01) | DRG 219 ==
LOC: CVICU 05:56
PROVIDERS: Anesthesiology; Clinical Nurse Specialist Acute Care; Nurse Practitioner; ADMITTING PHYSICIAN Thoracic Surgery (Cardiothoracic Vascular Surgery); CONSULT PHYSICIAN Internal Medicine; CONSULT PHYSICIAN Internal Medicine Cardiovascular Disease; FAMILY PHYSICIAN Family Medicine
PROC: B24BZZ4 Ultrasonography of Heart with Aorta, Transesophageal (ICD-10-PCS; 2024-12-30)
PROC: 02L70CK Occlusion of Left Atrial Appendage with Extraluminal Device, Open Approach (ICD-10-PCS; 2024-12-30)
PROC: 02U90JZ Supplement Chordae Tendineae with Synthetic Substitute, Open Approach (ICD-10-PCS; 2024-12-30)
PROC: 02UG08Z Supplement Mitral Valve with Zooplastic Tissue, Open Approach (ICD-10-PCS; 2024-12-30)
PROC: 5A1221Z Performance of Cardiac Output, Continuous (ICD-10-PCS; 2024-12-30)
PROC: 5A09357 Assistance with Respiratory Ventilation, Less than 24 Consecutive Hours, Continuous Positive Airway Pressure (ICD-10-PCS; 2024-12-30)
DX: I34.0 Nonrheumatic mitral (valve) insufficiency (principal); I51.1 Rupture of chordae tendineae, not elsewhere classified; E87.29 Other acidosis; D62 Acute posthemorrhagic anemia; I31.9 Disease of pericardium, unspecified; J98.11 Atelectasis; R06.89 Other abnormalities of breathing; J45.20 Mild intermittent asthma, uncomplicated; E66.811 Obesity, class 1; Z68.30 Body mass index [BMI] 30.0-30.9, adult; E05.00 Thyrotoxicosis with diffuse goiter without thyrotoxic crisis or storm; K30 Functional dyspepsia; R19.7 Diarrhea, unspecified; E86.1 Hypovolemia; E87.70 Fluid overload, unspecified; R91.1 Solitary pulmonary nodule; Z79.82 Long term (current) use of aspirin
CPT/HCPCS: 36415; 71045; 71046; 80048; 80053; 81003; 81015; 82248; 82330; 82565; 82805; 82947; 82962; 83036; 83735; 84132; 84302; 84520; 85014; 85018; 85025; 85027; 85049; 85610; 85730; 86850; 86900; 86901; 86920; 87070; 88305; 93005; 93308; 93312; 93320; 93325; 94010; 94640; 94660; J2916

== ENCOUNTER → 2025-01-24 13:29 | Outpatient (REF) | payer OTHER, SELFPAY | LOC: RAD 13:29 | PROVIDERS: ATTENDING PHYSICIAN Thoracic Surgery (Cardiothoracic Vascular Surgery); FAMILY PHYSICIAN Family Medicine | DX: R06.02 Shortness of breath (principal) | CPT/HCPCS: 71046 ==

== ENCOUNTER → 2025-02-01 16:08 | Outpatient (REF) | payer OTHER, SELFPAY | LOC: RAD 16:08 | PROVIDERS: ATTENDING PHYSICIAN Internal Medicine; FAMILY PHYSICIAN Family Medicine | DX: J18.9 Pneumonia, unspecified organism (principal) | CPT/HCPCS: 71046 ==

== ENCOUNTER 2025-02-10 16:12 | Outpatient (RCR) | payer OTHER, SELFPAY | END 2025-02-10 23:59 | disposition home or self-care (01) | LOC: CRHB 16:12 | PROVIDERS: ATTENDING PHYSICIAN Student in an Organized Health Care Education/Training Program | DX: Z95.4 Presence of other heart-valve replacement (principal) | CPT/HCPCS: 93797; 93798 ==

== ENCOUNTER 2025-03-06 15:44 | Outpatient (RCR) | payer OTHER, SELFPAY ==
[2025-03-08 11:55] LABS: HDL Cholesterol 55 mg/dl; LDL Cholesterol, Calculated 190 mg/dl; Very Low Density Lipoprotein 27 mg/dl (0-30)
== END 2025-03-06 23:59 | disposition home or self-care (01) ==
LOC: CRHB 15:44
PROVIDERS: ATTENDING PHYSICIAN Student in an Organized Health Care Education/Training Program; FAMILY PHYSICIAN Family Medicine; REFERRING PHYSICIAN Internal Medicine Cardiovascular Disease
DX: Z95.4 Presence of other heart-valve replacement (principal)
CPT/HCPCS: 36415; 80061; 93797; 93798

== ENCOUNTER 2025-03-15 15:35 | Outpatient (RCR) | payer OTHER, SELFPAY | END 2025-03-17 07:38 | disposition home or self-care (01) | LOC: CRHB 15:35 | PROVIDERS: ATTENDING PHYSICIAN Student in an Organized Health Care Education/Training Program; FAMILY PHYSICIAN Family Medicine; REFERRING PHYSICIAN Internal Medicine Cardiovascular Disease | DX: Z95.4 Presence of other heart-valve replacement (principal) | CPT/HCPCS: 93797; 93798 ==